=== PATIENT | male | born 1955 | race Caucasian/White ===

== ENCOUNTER 2021-01-24 09:55 | Emergency (ER) | payer MEDICARE, OTHER ==
[2021-01-24 10:45] LABS: BASOPHIL 1.2 % (0-2); EOSINOPHIL 3.7 % (0-7); HCT 40.9 % (42.0-52.0); HGB 14.2 g/dl (13.2-18.0); LYMPHOCYTE 30.5 % (15-48); MCH 32.4 pg (25.0-31.0); MCHC 34.7 g/dL (32.0-36.0); MCV 93.4 fL (78.0-100.0); MONOCYTE 12.1 % (0-12); MPV 9.6 fL (6.0-9.5); NEUTROPHIL 52.3 % (41-80); NRBC 0; PLT 268 K/uL (150-400); RBC 4.38 M/uL (4.70-6.00); RDW 13.1 % (11.5-14.0); WBC 5.9 K/uL (4.0-10.5)
[2021-01-24 11:09] LABS: ALBUMIN 3.8 g/dL (3.4-5.0); BILIRUBIN - TOTAL 0.4 mg/dL (0.2-1.0); BUN/CREAT RATIO (CALC) 25.9 RATIO; CREATININE 0.58 mg/dL (0.67-1.17); GLOBULIN (CALCULATION) 3.5 g/dL; POTASSIUM 4.1 mmol/L (3.5-5.1); TOTAL PROTEIN 7.3 g/dL (6.4-8.2)
[2021-01-24 11:16] LABS: CKMB 2.5 ng/mL (0.0-3.6)
== END 2021-01-24 13:46 | disposition home or self-care (01) ==
LOC: FER 09:55
PROVIDERS: Emergency Medicine
DX: R07.89 Other chest pain (principal); I10 Essential (primary) hypertension; Z79.82 Long term (current) use of aspirin; Z87.891 Personal history of nicotine dependence; Z79.899 Other long term (current) drug therapy
CPT/HCPCS: 36415; 71046; 80053; 82553; 84484; 85025; 93005